=== PATIENT | female | born 1940 | race American Indian/Alaskan Native ===

== ENCOUNTER 2016-05-24 06:30 | Outpatient (CLI) | payer MEDICARE, OTHER | END 2016-05-24 06:31 | disposition home or self-care (01) | DX: D64.9 Anemia, unspecified (principal) ==

== ENCOUNTER 2016-05-29 17:15 | Outpatient (CLI) | payer MEDICARE, OTHER | END 2016-05-29 17:16 | disposition home or self-care (01) | DX: I10 Essential (primary) hypertension (principal) ==

== ENCOUNTER 2016-07-15 10:40 | Outpatient (CLI) | payer MEDICARE, OTHER | END 2016-07-15 10:41 | disposition home or self-care (01) | DX: Z13.820 Encounter for screening for osteoporosis (principal); M81.0 Age-related osteoporosis without current pathological fracture; Z78.0 Asymptomatic menopausal state ==

== ENCOUNTER 2016-07-15 10:41 | Outpatient (CLI) | payer OTHER | END 2016-07-15 10:42 | disposition home or self-care (01) | DX: Z12.31 Encounter for screening mammogram for malignant neoplasm of breast (principal) ==

== ENCOUNTER 2016-08-14 14:44 | Outpatient (CLI) | payer MEDICARE, OTHER | END 2016-08-14 14:45 | disposition home or self-care (01) | DX: Z93.2 Ileostomy status (principal) ==

== ENCOUNTER 2016-08-26 13:27 | Inpatient (IN) | payer MEDICARE, OTHER ==
[2016-08-26] MEDS ORDERED: cefOXitin 2 GM in SODIUM CHLORIDE 0.9% MINIBAG 100 ML IV SCH (14:55)
[2016-08-26] MEDS ORDERED: PEG 3350/NA SULF,BICARB,CL/KCL 4,000 ML BOTTLE JT ONE (16:00)
[2016-08-26] MEDS ORDERED: DIATR MEGLU/DIATRIZOATE SODIUM 120 ML BOTTLE PO ONE (16:13)
[2016-08-26] MEDS: SODIUM CHLORIDE FLUSH 0.9% 10 ML SYRINGE IVP SCH (16:23)
[2016-08-26] MEDS: D5NS W/20 MEQ KCL 1,000 ML IV SCH ×2 (16:23→23:54)
[2016-08-26] MEDS: oxyCOD/ACETAMIN 5 MG/325 MG TABLET PO PRN ×2 (19:55→23:53)
[2016-08-27] MEDS: SODIUM CHLORIDE FLUSH 0.9% 10 ML SYRINGE IVP SCH ×3 (06:06→20:18)
[2016-08-27] MEDS ORDERED: SODIUM CHLORIDE 0.9% 100ML 100 ML IV ONE (06:34)
[2016-08-27] MEDS ORDERED: PROPOFOL 200 MG/20 ML VIAL IVP ONE (09:00)
[2016-08-27] MEDS ORDERED: LIDOCAINE-MPF 2% 5 ML VIAL IM ONE (09:00)
[2016-08-27] MEDS ORDERED: DEXAMETHASONE 4 MG/ML VIAL IVP ONE (09:00)
[2016-08-27] MEDS ORDERED: ONDANSETRON 4 MG/2 ML VIAL IVP ONE (09:00)
[2016-08-27] MEDS ORDERED: PHENYLEPHRINE 10 MG/ML VIAL IV ONE (09:00)
[2016-08-27] MEDS ORDERED: fentaNYL 100 MCG/2 ML VIAL IVP ONE (09:00)
[2016-08-27] MEDS ORDERED: ACETAMINOPHEN 1,000 MG/100 ML VIAL IV ONE (09:00)
[2016-08-27] MEDS ORDERED: MIDAZOLAM 2 MG/2 ML VIAL IVP ONE (09:00)
[2016-08-27] MEDS ORDERED: LACTATED RINGERS 400 ML IV ONE (09:08)
[2016-08-27] MEDS ORDERED: BUPIVACAINE 0.5% PF 30 ML VIAL SUBQ ONE (10:03)
[2016-08-27] MEDS ORDERED: LACTATED RINGERS 1,000 ML IV ONE (10:10)
[2016-08-27] MEDS: D5NS W/20 MEQ KCL 1,000 ML IV SCH ×2 (10:15→12:17)
[2016-08-27] MEDS ORDERED: SODIUM CHLORIDE FLUSH 0.9% 10 ML SYRINGE IVP PRN (11:28)
[2016-08-27] MEDS: oxyCOD/ACETAMIN 5 MG/325 MG TABLET PO PRN ×3 (12:43→20:37)
[2016-08-27] MEDS: HYDROmorphone 1 MG/ML SYRINGE IVP PRN (13:37)
[2016-08-27] MEDS: SODIUM CHLORIDE FLUSH 0.9% 10 ML SYRINGE IVP PRN (13:38)
[2016-08-27] MEDS ORDERED: PIPERACILLIN/TAZOBACTAM 3.375 GM in SODIUM CHLORIDE 0.9% MINIBAG 100 ML IV SCH (14:00)
[2016-08-27] MEDS ORDERED: SODIUM CHLORIDE FLUSH 0.9% 10 ML SYRINGE IVP SCH (14:00)
[2016-08-28] MEDS: oxyCOD/ACETAMIN 5 MG/325 MG TABLET PO PRN ×5 (00:22→20:40)
[2016-08-28] MEDS: SODIUM CHLORIDE FLUSH 0.9% 10 ML SYRINGE IVP SCH ×3 (05:06→19:56)
[2016-08-28] MEDS: PANTOPRAZOLE 40 MG TABLET PO SCH (06:14)
[2016-08-28] MEDS: D5NS W/20 MEQ KCL 1,000 ML IV SCH ×3 (06:39→20:59)
[2016-08-28] MEDS ORDERED: NS W/20 MEQ KCL 1,000 ML IV ONE (08:58)
[2016-08-28] MEDS ORDERED: SODIUM CHLORIDE 0.9% 500 ML IV ONE (22:15)
[2016-08-28] MEDS: SODIUM CHLORIDE FLUSH 0.9% 10 ML SYRINGE IVP PRN (22:48)
[2016-08-29] MEDS: oxyCOD/ACETAMIN 5 MG/325 MG TABLET PO PRN ×5 (01:32→22:02)
[2016-08-29] MEDS: SODIUM CHLORIDE FLUSH 0.9% 10 ML SYRINGE IVP SCH ×3 (05:32→20:48)
[2016-08-29] MEDS: PANTOPRAZOLE 40 MG TABLET PO SCH (06:11)
[2016-08-29] MEDS: D5NS W/20 MEQ KCL 1,000 ML IV SCH ×2 (12:42→20:47)
[2016-08-29] MEDS ORDERED: ACETAMINOPHEN 325 MG TABLET PO PRN (16:38)
[2016-08-30] MEDS: SODIUM CHLORIDE FLUSH 0.9% 10 ML SYRINGE IVP SCH ×3 (05:45→22:41)
[2016-08-30] MEDS: PANTOPRAZOLE 40 MG TABLET PO SCH (06:00)
[2016-08-30] MEDS: D5NS W/20 MEQ KCL 1,000 ML IV SCH ×2 (08:35→22:58)
[2016-08-30] MEDS: oxyCOD/ACETAMIN 5 MG/325 MG TABLET PO PRN ×3 (08:39→17:23)
[2016-08-30] MEDS: ONDANSETRON 4 MG/2 ML VIAL IVP PRN (13:11)
[2016-08-31] MEDS: ONDANSETRON 4 MG/2 ML VIAL IVP PRN (00:09)
[2016-08-31] MEDS: HYDROmorphone 1 MG/ML SYRINGE IVP PRN (00:15)
[2016-08-31] MEDS: SODIUM CHLORIDE FLUSH 0.9% 10 ML SYRINGE IVP SCH ×3 (06:09→22:03)
[2016-08-31] MEDS: PANTOPRAZOLE 40 MG TABLET PO SCH (06:30)
[2016-08-31] MEDS: oxyCOD/ACETAMIN 5 MG/325 MG TABLET PO PRN ×3 (09:25→23:53)
[2016-08-31] MEDS: D5NS W/20 MEQ KCL 1,000 ML IV SCH ×2 (11:43→23:53)
[2016-08-31] MEDS: metroNIDAZOLE 250 MG TABLET PO SCH ×2 (15:04→19:40)
[2016-08-31] MEDS: CIPROFLOXACIN 250 MG TABLET PO SCH ×2 (15:05→22:03)
[2016-09-01] MEDS: metroNIDAZOLE 250 MG TABLET PO SCH ×2 (00:34→06:18)
[2016-09-01] MEDS: PANTOPRAZOLE 40 MG TABLET PO SCH (06:18)
[2016-09-01] MEDS: ONDANSETRON 4 MG/2 ML VIAL IVP PRN (06:23)
[2016-09-01] MEDS: SODIUM CHLORIDE FLUSH 0.9% 10 ML SYRINGE IVP SCH ×3 (06:24→21:10)
[2016-09-01] MEDS: HYDROmorphone 1 MG/ML SYRINGE IVP PRN ×2 (07:54→12:39)
[2016-09-01] MEDS ORDERED: PROMETHAZINE INJ 12.5 MG in SODIUM CHLORIDE 0.9% 50 ML IV PRN (09:32)
[2016-09-01] MEDS: CIPROFLOXACIN 400 MG/200 ML 200 ML IV SCH ×2 (10:14→21:12)
[2016-09-01] MEDS: oxyCOD/ACETAMIN 5 MG/325 MG TABLET PO PRN (11:38)
[2016-09-01] MEDS: metroNIDAZOLE 500 MG/100 ML 100 ML IV SCH ×3 (12:40→23:58)
[2016-09-01] MEDS: D5NS W/20 MEQ KCL 1,000 ML IV SCH ×2 (15:59→23:57)
[2016-09-02] MEDS: PANTOPRAZOLE 40 MG TABLET PO SCH (06:13)
[2016-09-02] MEDS: metroNIDAZOLE 500 MG/100 ML 100 ML IV SCH (06:13)
[2016-09-02] MEDS: SODIUM CHLORIDE FLUSH 0.9% 10 ML SYRINGE IVP SCH ×2 (06:13→09:00)
[2016-09-02] MEDS: HYDROmorphone 1 MG/ML SYRINGE IVP PRN (08:23)
[2016-09-02] MEDS ORDERED: CIPROFLOXACIN 250 MG TABLET PO SCH (09:00)
[2016-09-02] MEDS ORDERED: metroNIDAZOLE 250 MG TABLET PO SCH (12:00)
== END 2016-09-02 17:45 | disposition home or self-care (01) | DRG 940 ==
PROC: 0DQB0ZZ Repair Ileum, Open Approach (ICD-10-PCS; principal; 2016-08-26)
PROC: 0DJD8ZZ Inspection of Lower Intestinal Tract, Via Natural or Artificial Opening Endoscopic (ICD-10-PCS; 2016-08-27)
DX: Z48.815 Encounter for surgical aftercare following surgery on the digestive system (principal); K91.3 Postprocedural intestinal obstruction; Y83.2 Surgical operation with anastomosis, bypass or graft as the cause of abnormal reaction of the patient, or of later complication, without mention of misadventure at the time of the procedure; Y92.230 Patient room in hospital as the place of occurrence of the external cause; K52.9 Noninfective gastroenteritis and colitis, unspecified; Z79.82 Long term (current) use of aspirin; Z79.899 Other long term (current) drug therapy; Z87.19 Personal history of other diseases of the digestive system